=== PATIENT | male | born 1950 | race Caucasian/White ===

== ENCOUNTER 2018-08-08 16:08 | Emergency (ER) | payer BC, OTHER ==
--- OUTSIDE RECORDS SUMMARY | 2018-08-08 16:11 | XMS REPORT | Summary of Care ---
:1950 Author Organization [facility] Address [address], [place] [address]- Encounter HQ Jaz_margaret(FIN) [id number] Date(s): 07/02/18 - 07/02/[address] [address]- [place] Discharge Disposition: Home or Self Care Attending Physician: Nain Law MD Referring Physician: Nain Law MD Vital Signs No data available for this section Problem List Condition Effective Dates Status Health Status Informant Chronic CHF(Confirmed) Active Diabetes mellitus type II(Confirmed) Active HTN - Hypertension(Confirmed) Active Colon cancer(Confirmed) Resolved Simple obesity(Confirmed) Active Tremor(Confirmed) Active Allergies, Adverse Reactions, Alerts Substance Reaction Severity Status NKDA Active Medications No data available for this section Results No data available for this section Immunizations No data available for this section Procedures No data available for this section Social History Social History Type Response Smoking Status Never smoker; Type: Chewing tobacco; Exposure to Tobacco Smoke None; Cigarette Smoking Last 365 Days No; Reg Smoking Cessation Counseling No entered on: 06/18/18 Assessment and Plan No data available for this section
--- OUTSIDE RECORDS SUMMARY | 2018-08-08 16:11 | XMS REPORT | Continuity of Care Document ---
:1950 Author Organization Interface Problems Problem Status Onset Classification Date Comments Source Date Reported TREMOR Active 06/25/[address] Chronic CHF Active Problem 08/02/2018 [facility] Diabetes Active Problem 08/02/2018 [facility] mellitus type II [facility] Essential tremor Active Problem 08/02/2018 [facility] HTN - Active Problem 08/02/2018 [facility] Hypertension [facility] Colon cancer Resolved Problem 08/02/2018 [facility] Simple obesity Active Problem 08/02/2018 [facility] Tremor Active Problem 08/02/2018 [facility] Medications Medication Details Route Status Patient Ordering Order Source Instructions Provider Date primidone 250 250 mg=1 Active 08/01/19 [facility] oral tab, PO, 19 Neuro tablet Daily, # 30 tab, 3 Refill(s), Pharmacy: [facility] [id number] topiramate 25 25 mg=1 tab, Active 08/01/19 [facility] Oral PO, BID, # 19 Neuro Tablet 60 tab, 4 [Topamax] Refill(s), Pharmacy: [facility] [id number] Allergies, Adverse Reactions, Alerts Substance Category Reaction Severity Reaction Status Date Comments Source type Reported Immunizations Immunization Date Given Site Status Last Updated Comments Source Results Order Results Value Reference Date Interpretation Comments Source Name Range Brain Brain EXAM: [facility] SPECT 07/02 - [facility] scan scan /2018 - Medical SPECT SPECT NM This report was dictated by a Medical Coding Manager/ Fellow/Physician Workers Compensation Coordinator. I have personally Center [place] reviewed the images as well as the interpretation and agree with the findings. DATE: 07/02/2018 1:45 PM Read by: Harpal Russo MD Resident/Fellow/Physician Workers Compensation Coordinator: Harpal Russo MD Dictated Date/time: 07/02/18 15:19 Electronically Signed by: Genie Melo MD 07/02/18 17:08 FINAL REPORT INDICATION: Evaluate for Parkinson disease COMPARISON: None. TECHNIQUE: After intravenous administration of 4.9 mCi of I-123 Ioflupane, delayed SPECT images of the head were obtained at 4 hours post injection. FINDINGS: Right striatum: There is normal tracer uptake in the right putamen with a Z score of - 1.29 (Z scores represent standard deviation from normal age match population and are significant if less than -1.6). Normal tracer uptake in the right caudate with a Z score of -0.59. The right striatum contributes 53% of the remaining dopamine transporter function with a Z score of -1.08 . Left striatum: There is normal tracer uptake in the left putamen with a Z score of - 1.35. Tracer uptake is normal in the left caudate with a Z score of -0.84. The left striatum contributes 47% of the remaining dopamine transporter function with a Z score of -1.13 . The remainder of tracer distribution in background brain parenchyma is within normal limits. IMPRESSION: Normal tracer uptake of the bilateral basal ganglia do not suggest Parkinson's disease. Vital Signs Vital Sign Value Date Comments Source BMI Calculated 35.52 07/31/2018 [facility] Weight 109.091 07/31/2018 [facility] Height 175.26 cm 07/31/2018 [facility] Heart Rate 78 07/31/2018 [facility] Respitory Rate 78 07/31/2018 [facility] Systolic (mm Hg) 150 07/31/2018 [facility] Diastolic (mm Hg) 70 07/31/2018 [facility] Encounters Location Location Encounter Encounter Reason Attending ADM DC Status Source Details Type Number For Provider Date Date Visit Outpatient [id number] FREDDY 10/09 [facility] [place] [facility] [id number] FREDDY 11/20 [facility] [place] Outpatient [id number] FREDDY 03/05 [facility] [place] Outpatient [id number] FREDDY 05/07 [facility] [place] Outpatient [id number] FREDDY 06/18 [facility] Outpatient [id number] Freddy 07/02 07/03 [facility] Outpatient [id number] Freddy 07/31 [facility] [place] [facility] Out[facility] [id number] Freddy 07/31 08/01 [facility] [place] Outpatient [id number] Freddy 11/27 [facility] [place] Procedures Procedure Code Date Perfomer Comments Source
--- OUTSIDE RECORDS SUMMARY | 2018-08-08 16:11 | XMS REPORT | Summary of Care ---
:1950 Author Organization [facility] [place] Address [address] [place] [address]- Encounter HQ Ronny(FIN) [id number] Date(s): 07/31/18 - 07/31/18 [facility] [address] [place] [address]- [phone] Discharge Disposition: Home or Self Care Attending Physician: Nain Law MD Referring Physician: Benjamin Taylor MD Vital Signs Most recent to oldest [Reference Range]: 1 Height 175.26 cm (07/31/18 11:04 AM) Blood Pressure [90-140/60-90 mmHg] 150/70 mmHg *HI* (07/31/18 11:04 AM) Respiratory Rate [14-20 BRMIN] 78 BRMIN *HI* (07/31/18 11:04 AM) Peripheral Pulse Rate [60-100 bpm] 78 bpm (07/31/18 11:04 AM) Weight 109.091 kg (07/31/18 11:04 AM) Body Mass Index 35.52 m2 (07/31/18 11:04 AM) Problem List Condition Effective Dates Status Health Status Informant Chronic CHF(Confirmed) Active Diabetes mellitus type II(Confirmed) Active Essential tremor(Confirmed) Active HTN - Hypertension(Confirmed) Active Colon cancer(Confirmed) Resolved Simple obesity(Confirmed) Active Tremor(Confirmed) Active Allergies, Adverse Reactions, Alerts Substance Reaction Severity Status NKDA Active Medications primidone 250 mg oral tablet 250 mg=1 tab, PO, Daily, # 30 tab, 3 Refill(s), Pharmacy: [place] [id number] Start Date: 07/31/18 Stop Date: 11/28/18 Status: OrderedTopamax 25 mg oral tablet 25 mg=1 tab, PO, BID, # 60 tab, 4 Refill(s), Pharmacy: [facility] [place] [id number] Start Date: 07/31/18 Stop Date: 12/28/18 Status: Ordered Results No data available for this section Immunizations No data available for this section Procedures No data available for this section Social History Social History Type Response Smoking Status Never smoker; Type: Chewing tobacco; Exposure to Tobacco Smoke None; Cigarette Smoking Last 365 Days No; Reg Smoking Cessation Counseling No entered on: 07/31/18 Assessment and Plan No data available for this section
--- OUTSIDE RECORDS SUMMARY | 2018-08-08 16:11 | XMS REPORT | Clinical Summary ---
:1950 Author Organization [facility] Address [address] [place] [address] Care Team Providers Name Role Phone Benjamin Taylor MD Primary Care Provider Allergies No Known Allergies Medications Medication Sig Dispensed Refills Start Date End Date Status insulin degludec Inject under 0 Active (TRESIBA FLEXTOUCH the skin. U-100) 100 unit/mL (3 mL) insulin pen omega-3 acid ethyl Take 1 g by 0 Active esters (LOVAZA) 1 gram mouth 2 (two) capsule times a day. tamsulosin (FLOMAX) Take 0.8 mg by 0 Active 0.4 mg mouth 2 (two) capsule,extended times a day. release 24hr amLODIPine (NORVASC) Take 10 mg by 0 Active 10 mg tablet mouth daily. finasteride (PROSCAR) Take 5 mg by 0 Active 5 mg tablet mouth daily. fenofibrate (TRICOR) Take 145 mg by 0 Active 145 MG tablet mouth daily. canagliflozin Take 100 mg by 0 Active (INVOKANA) 100 mg mouth daily tablet tablet before breakfast. primidone (MYSOLINE) Take 50 mg by 0 Active 50 MG tablet mouth daily. aspirin (ECOTRIN) 81 Take 81 mg by 0 Active MG enteric coated mouth 2 (two) tablet times a day. clonIDINE Place 1 patch 0 Active (CATAPRES-TTS) 0.3 on the skin mg/24 hr once a week. hydrALAZINE Take 75 mg by 0 Active (APRESOLINE) 50 MG mouth 3 (three) tablet times a day. valsartan (DIOVAN) 320 Take 320 mg by 0 Active MG tablet mouth daily. metoprolol succinate Take 1 tablet 30 tablet 11 09/27/2016 09/27/2017 XL (TOPROL XL) 25 mg (25 mg total) 24 hr tablet by mouth daily. Active Problems Problem Noted Date Hypertensive emergency 08/18/2016 Social History Tobacco Use Types Packs/Day Years Used Date Never Smoker Alcohol Use Drinks/Week oz/Week Comments No Sex Assigned at Date Recorded Not on file Job Start Date Occupation Industry Not on file Not on file Not on file Travel History Travel Start Travel End No recent travel history available. Last Filed Vital Signs Not on file Plan of Treatment Health Maintenance Due Date Last Done Comments COLON CANCER SCREENING 2001 SHINGLES VACCINES (#1) 2001 65+ PNEUMOCOCCAL VACCINE (1 of 2 - PCV13) 2016 PNEUMOCOCCAL POLYSACCHARIDE VACCINE AGE 65 AND OVER 2016 INFLUENZA VACCINE 11/14/2018 Results Not on fileafter 08/07/2017 Insurance Payer Benefit Plan / Group Subscriber ID Type Phone Address [employer] xxxxxxxxxxxx [employer] WORK WORK MEDICARE MEDICARE PART A AND B xxxxxxxxxx Medicare [place], [place] Advance Directives Patient has advance care planning documents, and code status on file. For more information, please contact:Victor M [address] [place] [address] Code Status Date Activated Date Inactivated Comments Full Code 08/18/2016 12:32 PM 08/21/2016 1:53 PM Code Status decision reached by: Patient
--- NOTE | 2018-08-08 17:31 | EDPHYS ---
Physician Documentation [facility] [place] Name: Pancho Carrizales Age: 68 yrs Sex: Male : 1950 Arrival Date: 08/08/2018 Time: 16:11 Bed 5 Private MD: Benjamin Taylor ED Physician Adal Alexander HPI: 08/08 17:23 This 68 yrs old Male presents to ER via Ambulatory with complaints of Arm jr8 Swelling,Redness Of Arm. 17:23 the patient presents with a swollen area of the left arm. Description: The affected jr8 area is moderate sized, erythematous. Onset: The symptoms/episode began/occurred acutely, 8 day(s) ago. Possible cause(s): Dog scratch. Associated signs and symptoms: The patient has no apparent associated signs or symptoms. Modifying factors: the symptoms are alleviated by nothing, the symptoms are aggravated by nothing. Severity of symptoms: At their worst the symptoms were mild, in the emergency department the symptoms are unchanged. The patient has not experienced similar symptoms in the past. The patient has not recently seen a physician. Patient stated that he was accidently scratched about 8 days ago by friends dog. Stated that it was initially healing but still red and painful. Feels that it has stopped healing now. . Historical: - Allergies: 16:56 No Known Allergies; ss - PMHx: 16:56 Hypertension; Diabetes - NIDDM; ss - Immunization history:: Flu vaccine is up to date. - Social history:: Smoking status: Patient/guardian denies using tobacco. - Ebola Screening: : Patient denies travel to an Ebola-affected area in the 21 days before illness onset. ROS: 17:23 Eyes: Negative for injury, pain, redness, and discharge, ENT: Negative for injury, jr8 pain, and discharge, Neck: Negative for injury, pain, and swelling, Cardiovascular: Negative for chest pain, palpitations, and edema, Respiratory: Negative for shortness of breath, cough, wheezing, and pleuritic chest pain, Abdomen/GI: Negative for abdominal pain, nausea, vomiting, diarrhea, and constipation, Back: Negative for injury and pain, MS/Extremity: Negative for injury and deformity, Neuro: Negative for headache, weakness, numbness, tingling, and seizure. 17:23 Skin: Positive for erythema, of the dorsal aspect of left forearm. Exam: 17:23 Eyes: Pupils equal round and reactive to light, extra-ocular motions intact. Lids and jr8 lashes normal. Conjunctiva and sclera are non-icteric and not injected. Cornea within normal limits. Periorbital areas with no swelling, redness, or edema. ENT: Nares patent. No nasal discharge, no septal abnormalities noted. Tympanic membranes are normal and external auditory canals are clear. Oropharynx with no redness, swelling, or masses, exudates, or evidence of obstruction, uvula midline. Mucous membranes moist. Neck: Trachea midline, no thyromegaly or masses palpated, and no cervical lymphadenopathy. Supple, full range of motion without nuchal rigidity, or vertebral point tenderness. No Meningismus. Cardiovascular: Regular rate and rhythm with a normal S1 and S2. No gallops, murmurs, or rubs. Normal PMI, no JVD. No pulse deficits. Respiratory: Lungs have equal breath sounds bilaterally, clear to auscultation and percussion. No rales, rhonchi or wheezes noted. No increased work of breathing, no retractions or nasal flaring. Abdomen/GI: Soft, non-tender, with normal bowel sounds. No distension or tympany. No guarding or rebound. No evidence of tenderness throughout. Back: No spinal tenderness. No costovertebral tenderness. Full range of motion. MS/ Extremity: Pulses equal, no cyanosis. Neurovascular intact. Full, normal range of motion. Neuro: Awake and alert, GCS 15, oriented to person, place, time, and situation. Cranial nerves II-XII grossly intact. Motor strength 5/5 in all extremities. Sensory grossly intact. Cerebellar exam normal. Normal gait. 17:23 Skin: patient has approximately 4 inch healing superficial laceration to left dorsal forearm. Scabbed and with mild erythema surrounding wound. No discharge or cellulitis noted. No lymphangitis or streaking as well. Vital Signs: 16:56 BP 176 / 87; Pulse 75; Resp 18; Temp 97.9; Pulse Ox 95% on R/A; Weight 108.86 kg (R); ss Height 5 ft. 9 in. (175.26 cm) (R); Pain 7/10; 16:56 Body Mass Index 35.44 (108.86 kg, 175.26 cm) ss MDM: 17:05 Patient medically screened. jr8 17:23 Data reviewed: vital signs, nurses notes, and as a result, I will discharge patient. jr8 Data interpreted: Pulse oximetry: on room air is 95 %. Interpretation: normal. Counseling: I had a detailed discussion with the patient and/or guardian regarding: the historical points, exam findings, and any diagnostic results supporting the discharge/admit diagnosis, the need for outpatient follow up, a family practitioner, to return to the emergency department if symptoms worsen or persist or if there are any questions or concerns that arise at home. Administered Medications: No medications were administered Disposition: 08/08/18 17:30 Discharged to Home. Impression: Local infection of the skin and subcutaneous tissue, unspecified. - Condition is Stable. - Discharge Instructions: Cellulitis, Adult. - Prescriptions for Augmentin 875- 125 mg Oral Tablet - take 1 tablet by ORAL route every 12 hours for 10 days; 20 tablet. - Medication Reconciliation Form, Thank You Letter, Antibiotic Education, Prescription Opioid Use form. - Follow up: Benjamin Taylor MD; When: 1 week; Reason: Wound Recheck, Recheck today's complaints, Continuance of care, Re-evaluation by your physician. - Problem is new. - Symptoms have improved. Addendum: 08/13/2018 10:24 Co-signature as Attending Physician, Adal Alexander MD I agree with the assessment and k dr plan of care. Signatures: Adal Alexander MD MD [facility] Jamila Abebe RN RN Holland Hayes PA PA jr8 Debbie Luna, JALEN RN hb Corrections: (The following items were deleted from the chart) 08/08 17:47 17:30 08/08/2018 17:30 Discharged to Home. Impression: Local infection of the skin and hb subcutaneous tissue, unspecified. Condition is Stable. Forms are Medication Reconciliation Form, Thank You Letter, Antibiotic Education, Prescription Opioid Use. Follow up: Benjamin Taylor; When: 1 week; Reason: Wound Recheck, Recheck today's complaints, Continuance of care, Re-evaluation by your physician. Problem is new. Symptoms have improved. jr8
--- NOTE | 2018-08-08 17:31 | ER ---
Nurse's Notes [facility] Name: Pancho Carrizales Age: 68 yrs Sex: Male : 1950 Arrival Date: 08/08/2018 Time: 16:11 Bed 5 Private MD: Benjamin Taylor Diagnosis: Local infection of the skin and subcutaneous tissue, unspecified Presentation: 08/08 16:55 Presenting complaint: Patient states: "About 8 days ago my brother's dog scratched my ss arm and it just doesn't seem like it's healing. I went over to Urgent Care and they told me I needed to come over here" Reports redness, swelling and drainage from wound to left arm. Denies fever. Transition of care: patient was not received from another setting of care. Onset of symptoms was July 2018. Risk Assessment: Do you want to hurt yourself or someone else? Patient reports no desire to harm self or others. Initial Sepsis Screen: Does the patient meet any 2 criteria? No. Patient's initial sepsis screen is negative. Does the patient have a suspected source of infection? No. Patient's initial sepsis screen is negative. Care prior to arrival: None. 16:55 Method Of Arrival: Ambulatory ss 16:55 Acuity: ALFREDO 3 ss Triage Assessment: 16:56 General: Appears in no apparent distress. comfortable, Behavior is calm, cooperative, ss appropriate for age. Pain: Complains of pain in dorsal aspect of left forearm Pain currently is 7 out of 10 on a pain scale. Neuro: Level of Consciousness is awake, alert, obeys commands, Oriented to person, place, time, situation. Cardiovascular: Patient's skin is warm and dry. Respiratory: Airway is patent Respiratory effort is even, unlabored, Respiratory pattern is regular, symmetrical. Historical: - Allergies: 16:56 No Known Allergies; ss - PMHx: 16:56 Hypertension; Diabetes - NIDDM; ss - Immunization history:: Flu vaccine is up to date. - Social history:: Smoking status: Patient/guardian denies using tobacco. - Ebola Screening: : Patient denies travel to an Ebola-affected area in the 21 days before illness onset. Screenin:30 Abuse screen: Denies threats or abuse. Denies injuries from another. Nutritional hb screening: No deficits noted. Tuberculosis screening: No symptoms or risk factors identified. Fall Risk None identified. Assessment: 17:30 General: Appears in no apparent distress. Behavior is calm, cooperative. Pain: Pain hb currently is 3 out of 10 on a pain scale. Neuro: Level of Consciousness is awake, alert, obeys commands, Oriented to person, place, time, situation. Cardiovascular: Capillary refill < 3 seconds Patient's skin is warm and dry. Respiratory: Airway is patent Respiratory effort is even, unlabored, Respiratory pattern is regular, symmetrical. GI: No signs and/or symptoms were reported involving the gastrointestinal system. : No signs and/or symptoms were reported regarding the genitourinary system. EENT: No signs and/or symptoms were reported regarding the EENT system. Derm: Skin is healthy with good turgor, Wound noted dorsal aspect of left forearm Wound is 10 cm jagged wound to left FA, mild erythema surrounding wound, no drainage noted. Musculoskeletal: No signs and/or symptoms reported regarding the musculoskeletal system. Vital Signs: 16:56 BP 176 / 87; Pulse 75; Resp 18; Temp 97.9; Pulse Ox 95% on R/A; Weight 108.86 kg (R); ss Height 5 ft. 9 in. (175.26 cm) (R); Pain 7/10; 16:56 Body Mass Index 35.44 (108.86 kg, 175.26 cm) ED Course: 16:11 Patient arrived in ED. rg4 16:12 Benjamin Taylor MD is Private Physician. rg4 16:56 Triage completed. ss 16:56 Arm band placed on Patient placed in waiting room, Patient notified of wait time. ss 17:02 Holland Hayes PA is PHCP. jr8 17:02 Adal Alexander MD is Attending Physician. jr8 17:21 Debbie Luna, JALEN is Primary Nurse. hb 17:30 Benjamin Taylor MD is Referral Physician. jr8 17:30 Patient has correct armband on for positive identification. Call light in reach. hb 17:45 No provider procedures requiring assistance completed. Patient did not have IV access hb during this emergency room visit. Administered Medications: No medications were administered Outcome: 17:30 Discharge ordered by . jr8 17:45 Discharged to home ambulatory. hb 17:45 Condition: stable 17:45 Discharge instructions given to patient, Instructed on discharge instructions, follow up and referral plans. medication usage, wound care, Demonstrated understanding of instructions, follow-up care, medications, wound care, Prescriptions given X 1. 17:47 Patient left the ED. hb Signatures: Jamila Abebe, RN RN Holland Barraza PA PA jr8 Debbie Luna RN RN hb Garcia, Rubi rg4
== END 2018-08-08 17:47 | disposition home or self-care (01) ==
LOC: ER 16:08
DX: L08.9 Local infection of the skin and subcutaneous tissue, unspecified (principal); I10 Essential (primary) hypertension; E11.9 Type 2 diabetes mellitus without complications
CPT/HCPCS: 99282